=== PATIENT | male | born 1975 | race African-American/Black ===

== ENCOUNTER 2016-12-22 01:25 | Emergency (ER) ==
[2016-12-22 01:34] VITALS: BP 143/92; TEMP 98.2; BMI 25.0
--- NOTE | 2016-12-22 02:12 | DI ---
Exam: Right shoulder four views History: Injury and pain Findings / impression: Glenohumeral joint appears normal. There is elevation of the distal clavicl e relative to the acromion. Normal coracoclavicular interval. The degree of distal clavicle elevat ion is difficult to measure but possibly one half shaft width. Correlate for site of injury and khurram n. Mild acromioclavicular osteoarthritic change also suggested.
[2016-12-22] MEDS ORDERED: NORFLEX IM STA (03:00)
[2016-12-22] MEDS ORDERED: TORADOL IM STA (03:00)
--- NOTE | 2016-12-22 03:03 | ED.PDOC ---
General ED Provider: Dr. MARY ARDON-ER Chief Complaint: Shoulder Pain/Injury Stated Complaint: angelo had trouble wtih my shoulder for years since an accident-- it hurts to move it..denies any cp, dyspnea or nausea Time Seen by Physician: 01:30 Mode of Arrival: Walk-In Information Source: Patient Exam Limitations: No limitations Nursing and Triage Documentation Reviewed and Agree: Yes Musculoskeletal Complaint Exam - Shoulder Pain Complaint/Exam Mechanism of Injury: Reports: Trauma Onset/Duration: years Symptoms Are: Still present Timing: Intermittent Initial Severity: Mild Current Severity: Moderate Location: Reports: Discrete (right shoulder) Character: Reports: Dull, Aching Alleviating: Reports: None Aggravating: Reports: Movement, Lifting, Flexion, Extension, Internal rotation, External rotation, Abduction Associated Signs and Symptoms: Denies: Swelling, Redness, Bruising, Fever, Weakness, Numbness, Tingling Non-Orthopedic Risk Factors: Reports: None DVT Risk Factors: Reports: None Septic Arthritis Risk Factors: Reports: None Related Surgical History: Reports: None Shoulder Findings: Present: Abnormal contour. Absent: Swelling, Ecchymosis, Rotation, Ligamentous instability, Laceration, Erythema, Warmth, Blisters, Other joint pain, Foreign body, Adson's Sign Tenderness: Present: AC joint Limited Range of Motion: Present: Abduction, Adduction, Internal rotation, External rotation Differential Diagnoses: AC Seperation, Rotator Cuff Injury Review of Systems - Review Of Systems Constitutional: Reports: No symptoms Eyes: Reports: No symptoms Ears, Nose, Mouth, Throat: Reports: No symptoms Respiratory: Reports: No symptoms Cardiac: Reports: No symptoms GI: Reports: No symptoms : Reports: No symptoms Musculoskeletal: Reports: Joint pain, Joint swelling Skin: Reports: No symptoms Neurological: Reports: No symptoms Endocrine: Reports: No symptoms Hematologic/Lymphatic: Reports: No symptoms All Other Systems: Reviewed and Negative Past Medical History - Past Medical History Endocrine: Reports: None Cardiovascular: Reports: None Respiratory: Reports: None Hematological: Reports: None Gastrointestinal: Reports: None Genitourinary: Reports: None Neuro/Psych: Reports: None Musculoskeletal: Reports: None Cancer: Reports: None - Surgical History General Surgical History: Reports: Unknown - Family History Family History: Reports: Unknown - Social History Smoking Status: Current every day smoker Hx Substance Use: No Alcohol Screening: Occasionally Lives: With family - Immunizations Tetanus Shot up to Date: Yes Physical Exam - Physical Exam Appearance: Well-appearing, No pain distress, Well-nourished Pain Distress: Moderate Eyes: ATIF, EOMI, Conjunctiva clear ENT: Ears normal, Nose normal, Oropharynx normal Neck: Supple Respiratory: Airway patent, Breath sounds clear, Breath sounds equal, Respirations nonlabored Cardiovascular: RRR, Pulses normal, No rub, No murmur GI/: Soft, Nontender, No masses, Bowel sounds normal, No Organomegaly Musculoskeletal: No edema, Limited ROM Skin: Warm, Dry, Normal color Neurological: Sensation intact, Motor intact, Reflexes intact, Cranial nerves intact, Alert, Oriented Psychiatric: Affect appropriate, Mood appropriate Interpretation - Radiology Interpretation Radiology Interpretation By: ED Physician Radiology Results: Positive Critical Care Note - Critical Care Note Total Time (mins): 0 Course - Course Orders, Labs, Meds: Orders Category Date Time Status Ketorolac Tromethamine [Toradol] MEDS 12/22/16 03:00 Stat 60 mg IM ONCE STA Orphenadrine Citrate [Norflex] MEDS 12/22/16 03:00 Stat 60 mg IM ONCE STA SHOULDER, RIGHT MIN 2V Stat RADS 12/22/16 01:44 Completed Vital Signs: Temp Pulse Resp BP Pulse Ox 12/22/16 01:27 98.2 F 72 20 143/92 H 98 Departure - Departure Time of Disposition: 03:04 Disposition: HOME SELF-CARE Discharge Problem: Chronic right shoulder pain Instructions: Shoulder Pain (ED) Condition: Good Pt referred to PMD for follow-up: Yes Additional Instructions: talk to your pcp about referral to ortho for your chronic shoulder pain Allergies/Adverse Reactions: Allergies No Known Allergies Allergy (Verified 12/22/16 01:34) Home Medications: Ambulatory Orders Levothyroxine Sodium [Synthroid] 125 mcg PO DAILY 07/21/16 Triamterene [Dyrenium] 25 mg PO DAILY 12/22/16 Disposition Discussed With: Patient
== END 2016-12-22 03:35 | disposition home or self-care (01) ==
LOC: ED 01:25
DX: M25.511 Pain in right shoulder (principal); G89.29 Other chronic pain; F17.210 Nicotine dependence, cigarettes, uncomplicated
CPT/HCPCS: 96372; 99282